=== PATIENT | female | born 1960 | race Caucasian/White ===

== ENCOUNTER → 2019-08-30 | Outpatient (CLI) | payer OTHER, SELFPAY ==
--- NOTE | 2019-08-30 15:59 | US_ITS ---
STUDY: THYROID ULTRASOUND REASON FOR EXAM: Female, 59 years old. Nodule. Stricture of left thyroidectomy. TECHNIQUE: Ultrasound evaluation of the thyroid was performed with real-time and static salazar-scale imaging. COMPARISON: CTA of the carotid arteries, May 06, 2016. FINDINGS: RIGHT LOBE: The right lobe of the thyroid gland measures 4.7 x 2.7 x 2.8 cm. There is a homogeneous echotexture. There is a 2.8 x 2.7 x 2.4 cm complex solid and cystic nodule which correlates with the CT finding. There is peripheral and internal blood flow. LEFT LOBE: Status post left thyroidectomy ISTHMUS: The isthmus measures 0.3 cm. The regional lymph nodes are normal. US/Thyroid IMPRESSION: TIRADS TR 2 lesion. Not suspicious. This appears unchanged in size and appearance from the CT of 2016. Electronically Signed: Breezy Loredo DO at 22:50 EDT Tel [phone], Service support ,
== END | disposition home or self-care (01) ==
LOC: US 15:57
PROVIDERS: Referring Provider Surgery; Visit Provider Surgery
DX: E04.1 Nontoxic single thyroid nodule (principal)
CPT/HCPCS: 76536

== ENCOUNTER → 2020-12-28 15:52 | Outpatient (CLI) | payer OTHER, SELFPAY ==
[2019-09-23 13:51] VITALS: BMI 34.0
[2020-12-28 17:24] LABS: Absolute Lymphocyte Count 3.21 X10^3/uL (0.83-4.51); Absolute Neutrophil Count 2.7 X10^3/uL (2.0-7.7); Basophil# 0.03 X10^3/uL; Basophil% 0.5 % (0-1); Eosinophil# 0.07 X10^3/uL; Eosinophils% 1.1 % (0-5); Hematocrit 41.9 % (37-47); Hemoglobin 13.6 g/dL (12.0-15.0); Lymphocyte # 3.21 X10^3/ul (4.0); Lymphocyte % 48.5 % (19-41); Mean Corp Hgb Conc 32.5 g/dL (32-36); Mean Corpuscular Hgb 28.7 pg (27.0-32.0); Mean Corpuscular Volume 88.4 fL (81-99); Mean Platelet Vol. 10.7 fl (6.2-12.0); Monocyte# 0.56 X10^3/uL; Monocyte% 8.5 % (0-10); NRBC Flagged by Analyzer 0 % (0-5); Neutrophil # 2.73 X10^3/uL (2.7-7.7); Neutrophil % 41.1 % (47-70); Platelet Count 194 K/mm3 (150-450); RBC Distribution Width CV 13.2 % (11.6-14.6); RBC Distribution Width SD 43.5 fl (35.1-43.9); Red Blood Count 4.74 M/mm3 (4.2-5.4); White Blood Count 6.6 K/mm3 (4.4-11.0)
[2020-12-28 17:52] LABS: ALB/GLOB Ratio 1.2 RATIO (0.9-2.4); AST(SGOT) 14 U/L (15-37); Alanine Aminotransfer ALT/SGPT 27 U/L (13-56); Albumin, Serum 3.8 g/dL (3.2-5.0); Alkaline Phosphatase 117 U/L (45-117); Anion Gap 5 (5-15); BUN 14 mg/dL (7-18); BUN/Creat Ratio 14.8 RATIO (10-20); Calcium,Total 8.4 mg/dL (8.5-10.1); Chloride 108 mmol/L (98-107); Cholesterol 212 mg/dL (200); Creatinine, Serum 0.94 mg/dL (0.55-1.02); EST Glomerular Filtration Rate 64 mL/min (>60); Est Glom Filt Rate - Afr Amer 78 mL/min (>60); Globulin 3.1 g/dL (2.2-4.2); Glucose 76 mg/dL (74-106); High Density Lipoprotein 90 mg/dL; Potassium 3.5 mmol/L (3.5-5.1); Protein, Total 6.9 g/dL (6.4-8.2); Sodium Level 142 mmol/L (136-145); T4 Free Direct 1.04 ng/dL (0.76-1.46); Thyroid Stim Hormone (TSH) 2.25 uIU/mL (0.358-3.74); Triglycerides 110 mg/dL; Very Low Density Lipoprotein 22 mg/dL (5-40)
[2020-12-31 20:31] LABS: Anti-Thyroglobulin AB < 1.0 IU/mL (0.0-0.9); Thyroglobulin, Serum Qt. 106.8 ng/mL (1.5-38.5); Thyroid Peroxidase AB < 9 IU/mL (0-34)
== END ==
PROVIDERS: PCP Family Medicine; Referring Provider Family Medicine; Visit Provider Family Medicine
DX: E03.9 Hypothyroidism, unspecified (principal)
CPT/HCPCS: 36415; 80053; 80061; 84432; 84439; 84443; 85025; 86376; 86800

== ENCOUNTER → 2021-01-17 15:00 | Outpatient (CLI) | payer OTHER, SELFPAY ==
[2019-09-23 13:51] VITALS: BMI 34.0
--- NOTE | 2021-01-17 15:03 | ECHOD_ITS ---
Reason For Study: MURMUR Procedure This was a 2D Doppler, Color Flow transthoracic echocardiogram. Exam performed in department. Left Ventricle Normal LV size. The estimated ejection fraction is 60-65 %. No evidence for diastolic dysfunction. No regional wall motion abnormalities noted. Right Ventricle Normal RV size. Normal systolic function. Atria Normal left atrium. Normal right atrium. No doppler evidence for ASD. Mitral Valve There is no mitral valve stenosis. Trivial mitral valve insufficiency. Tricuspid Valve There is no tricuspid stenosis. Trivial tricuspid valve insufficiency. Unable to estimate RV systolic pressure due to insufficient tricuspid regurgitant envelope. Aortic Valve Trisinus/trileaflet aortic valve. Aortic sclerosis, no stenosis. There is no aortic stenosis. No aortic valve insufficiency. Pulmonic Valve There is no pulmonic valvular stenosis. No pulmonic valve insufficiency. Great Vessels Normal aortic root. Pericardium/Pleural No pericardial effusion. MMode/2D Measurements & Calculations LVIDd: 3.9 cm IVSd: 0.74 cm Ao root diam: 3.5 cm LVIDs: 2.7 cm LVPWd: 0.76 cm RVDd: 3.2 cm FS: 29.2 % LAV(MOD-bp): 37.4 ml LA A4 area: 11.9 cm2 LA dimension(2D): 3.5 cm LAV(MOD-bp) Indexed: 20.7 ml/m2 LAV(MOD-sp2): 56.6 ml LAV(MOD-sp4): 23.9 ml RA A4 area: 10.5 cm2 Time Measurements MV dec time: 0.21 sec Doppler Measurements & Calculations MV E max adolfo: 76.7 cm/sec Lat Peak E' Adolfo: 10.5 cm/sec Med Peak E' Adolfo: 7.0 cm/sec MV A max adolfo: 87.7 cm/sec E/E' lat: 7.3 E/E' med: 11.0 MV E/A: 0.87 Ao V2 max: 156.4 cm/sec LV V1 max: 118.4 cm/sec PA V2 max: 123.1 cm/sec Ao max P.8 mmHg LV V1 max P.6 mmHg TR max adolfo: 231.9 cm/sec TR max P.5 mmHg Interpretation Summary The estimated ejection fraction is 60-65 %. No evidence for diastolic dysfunction. Trivial mitral valve insufficiency. Ordering Physician: Ike Moraes Referring Physician: Ike Moraes Performed By: Lyric Michaels RDCS, RVT
== END ==
PROVIDERS: PCP Family Medicine; Referring Provider Family Medicine; Visit Provider Family Medicine
DX: R01.1 Cardiac murmur, unspecified (principal)
CPT/HCPCS: 93306

== ENCOUNTER → 2021-04-23 16:27 | Outpatient (CLI) | payer OTHER, SELFPAY ==
[2019-09-23 13:51] VITALS: BMI 34.0
[2021-04-23 18:31] LABS: T4 Free Direct 1.22 ng/dL (0.76-1.46); Thyroid Stim Hormone (TSH) 2.88 uIU/mL (0.358-3.74)
== END ==
PROVIDERS: PCP Family Medicine; Referring Provider Family Medicine; Visit Provider Family Medicine
DX: E03.9 Hypothyroidism, unspecified (principal)
CPT/HCPCS: 36415; 84439; 84443

== ENCOUNTER → 2022-03-25 | Outpatient (CLI) | payer OTHER, SELFPAY ==
[2022-03-25 17:37] LABS: Absolute Neutrophil Count 1.7 X10^3/uL (2.0-7.7); Basophil# 0.02 X10^3/uL; Basophil% 0.4 % (0-1); Eosinophil# 0.04 X10^3/uL; Eosinophils% 0.8 % (0-5); Hematocrit 40.2 % (37-47); Hemoglobin 13.2 g/dL (12.0-15.0); Mean Corp Hgb Conc 32.8 g/dL (32-36); Mean Corpuscular Hgb 28.9 pg (27.0-32.0); Mean Corpuscular Volume 88.2 fL (81-99); Mean Platelet Vol. 11.2 fl (6.2-12.0); Monocyte% 9.5 % (0-10); NRBC Flagged by Analyzer 0 % (0-5); Neutrophil # 1.69 X10^3/uL (2.7-7.7); Neutrophil % 32.1 % (47-70); Platelet Count 180 K/mm3 (150-450); RBC Distribution Width CV 13.6 % (11.6-14.6); Red Blood Count 4.56 M/mm3 (4.2-5.4); White Blood Count 5.3 K/mm3 (4.4-11.0)
[2022-03-25 18:46] LABS: ALB/GLOB Ratio 1.2 RATIO (0.9-2.4); AST(SGOT) 15 U/L (15-37); Alanine Aminotransfer ALT/SGPT 28 U/L (13-56); Albumin, Serum 3.6 g/dL (3.2-5.0); Alkaline Phosphatase 99 U/L (45-117); Anion Gap 6 (5-15); BUN 13 mg/dL (7-18); BUN/Creat Ratio 14.4 RATIO (10-20); Calcium,Total 8.5 mg/dL (8.5-10.1); Chloride 107 mmol/L (98-107); EST Glomerular Filtration Rate 67 mL/min (>60); Est Glom Filt Rate - Afr Amer 81 mL/min (>60); Globulin 2.9 g/dL (2.2-4.2); Glucose 83 mg/dL (74-106); Potassium 4.1 mmol/L (3.5-5.1); Protein, Total 6.5 g/dL (6.4-8.2); Sodium Level 141 mmol/L (136-145); T4 Free Direct 1.38 ng/dL (0.76-1.46); Thyroid Stim Hormone (TSH) 1.94 uIU/mL (0.358-3.74)
[2022-03-25 19:14] LABS: Vitamin B12 318 pg/mL (211-911); Vitamin D,25 Hydroxy 21.3 ng/mL
== END | disposition home or self-care (01) ==
LOC: MFPLAB 15:33
PROVIDERS: PCP Family Medicine; Visit Provider Family Medicine
DX: E03.9 Hypothyroidism, unspecified (principal); R23.2 Flushing
CPT/HCPCS: 36415; 80053; 82306; 82607; 84439; 84443; 85025

== ENCOUNTER → 2022-04-11 | Outpatient (CLI) | payer OTHER, SELFPAY ==
--- NOTE | 2022-04-11 15:58 | US_ITS ---
ACR Level 3 findings have been noted. An addendum which confirms receipt of the report will follow. INDICATION: THYROID NODULE- F/U RT EXAMINATION: Ultrasound US Thyroid (eg thyroid, parathyroid, parotid) TECHNIQUE: Lujan scale and color doppler imaging was performed of the thyroid gland. COMPARISON: None. FINDINGS: RIGHT THYROID LOBE: 5.1 x 3.4 x 3.1 cm. Homogeneous echotexture with normal vascularity. [Single nodule in the midpole with smooth margins, nearly completely solid with small cystic areas, no internal echogenic foci, wider than tall, isoechoic to mildly hyperechoic. Nodule measures 3.5 x 3.5 x 2.3 cm. LEFT THYROID LOBE: Surgically absent.. [ ISTHMUS: 3 mm. No thyroid nodules are present. US/Thyroid IMPRESSION: Status post left lobectomy. 3.5 cm nodule TI-RADS level 3 or mildly suspicious. Fine-needle aspiration recommended. Electronically Signed: Parish Medrano MD at 19:57 EDT ,
== END | disposition home or self-care (01) ==
LOC: US 15:55
PROVIDERS: PCP Family Medicine; Referring Provider Family Medicine; Visit Provider Family Medicine
DX: E04.1 Nontoxic single thyroid nodule (principal)
CPT/HCPCS: 76536

== ENCOUNTER → 2022-05-15 | Outpatient (CLI) | payer OTHER, SELFPAY ==
--- NOTE | 2022-05-15 10:00 | ASPS_PTH ---
PATIENT: MUNIR MORENO LOC: [facility] U#:[id number] AGE/SX: 62/F ROOM: RE05/15/[address]: Dr. Yovanny Siddiqui MD : 1960 BED: DIS: 05/15/2022 SPEC #: [id number] RECD: 05/15/22 12:08 STATUS: DAVE SCHAFFER #: [id number] MIHIR: 05/15/22 10:[address]: Yovanny Siddiqui DEPT: CYTOLOGY RECD BY: Jael Lora ENTERED: 05/15/22 13:53 SP TYPE: ASPIRATION OTHR DR: Dr. Ike Moraes MD Tissues: Thyroid gland, NOS Procedures: Special Stain Group II Cytology Other HEADER OPERATION: Right thyroid fine needle aspiration PRE-OP DIAGNOSIS: Right thyroid nodule TISSUE SUBMITTED: Right thyroid nodule x8 slides DIAGNOSIS CYTOLOGY Fine needle aspiration, right thyroid nodule (smears): Adequate for evaluation. Focal atypia of undetermined significance (Harrison III). See comment. 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 Clinical correlation is suggested. Multi-gene next-generation sequencing panel (Afirma) is recommended for this lesion. CYTOLOGY STUDY Slides are reviewed. CYTOLOGY GROSS Received are eight smears labeled with the patient's name and designated per the requisition as right thyroid nodule. Submitted for staining. / iván 05/15/2022 TC:? CPT: 02390
== END | disposition home or self-care (01) ==
LOC: LABSPEC 13:31
PROVIDERS: PCP Family Medicine; Visit Provider Surgery
DX: E04.1 Nontoxic single thyroid nodule (principal)
CPT/HCPCS: 88161; 88313

== ENCOUNTER → 2022-11-12 | Outpatient (CLI) | payer OTHER, SELFPAY ==
[2022-11-17 12:26] LABS: HPV APTIMA, High Risk Negative (Negative)
[2022-11-17 20:30] LABS: HPV Reflexed? YES, CHARGE PATIENT
== END | disposition home or self-care (01) ==
PROVIDERS: PCP Family Medicine; Visit Provider Nurse Practitioner Family
DX: Z01.419 Encounter for gynecological examination (general) (routine) without abnormal findings (principal)
CPT/HCPCS: 87624; 88175; G0145

== ENCOUNTER → 2023-03-05 | Outpatient (CLI) | payer OTHER, SELFPAY ==
[2023-03-05 13:00] LABS: Free T3 2.5 pg/mL (2.18-3.98); T4 Free Direct 1.23 ng/dL (0.76-1.46); Thyroid Stim Hormone (TSH) 1.81 uIU/mL (0.358-3.74)
[2023-03-05 13:04] LABS: Vitamin B12 294 pg/mL (211-911)
[2023-03-12 00:06] LABS: Vitamin B1, Thiamine 170.1 nmol/L (66.5-200.0)
== END | disposition home or self-care (01) ==
LOC: MFPLAB 10:44
PROVIDERS: PCP Family Medicine; Visit Provider Psychiatry & Neurology Neurology
DX: E55.9 Vitamin D deficiency, unspecified (principal); G24.9 Dystonia, unspecified
CPT/HCPCS: 36415; 82607; 82652; 82746; 84425; 84439; 84443; 84481

== ENCOUNTER → 2023-05-01 | Outpatient (CLI) | payer OTHER, SELFPAY ==
--- NOTE | 2023-05-01 15:42 | US_ITS ---
INDICATION: thyroid, F/U EXAMINATION: Ultrasound US Thyroid (eg thyroid, parathyroid, parotid) TECHNIQUE: Lujan scale and color doppler imaging was performed of the thyroid gland. COMPARISON: 04/11/2022 FINDINGS: RIGHT THYROID LOBE: 5.1 x 3.5 x 2.9 cm. Homogeneous echotexture with normal vascularity. [There is a large complex nodule/mass within the RIGHT thyroid, measuring 3.7 x 3.8 x 2.4 cm. This is predominantly solid with several small cysts. Mildly lobulated contour. There is peripheral and internal blood flow. Based on the current imaging findings, this is consistent with a TI-RADS 4 lesion. Imaging findings appear stable. LEFT THYROID LOBE: Surgically absent. ISTHMUS: 2 mm. No thyroid nodules are present. US/Thyroid IMPRESSION: 1. Status post LEFT thyroidectomy. 2. Large dominant RIGHT thyroid mass predominantly solid however small cystic areas, irregular lobulated contour, and internal and peripheral blood flow. Findings are stable, however consistent with a TI-RADS 4 lesion. As noted on previous report, FNA is recommended. If FNA has been previously performed at, and recommend follow-up in one year to assure stability. Reference: Tessler. Deutsch al., ACR Thyroid Imaging, Reporting and Data System (TI-RADS): White Paper of the ACR TI-RADS Committee. 2017. ACR. http://dx.doi.org/10.1016/j.jacr.2017.01.046 TI RADS 1: Benign: No FNA TI-RADS 2: Not suspicious: No FNA TI-RADS 3: Mildly suspicious: FNA ? 2.5 cm, follow ? 1.5 cm TI-RADS 4: Moderately suspicious: FNA if ? 1.5 cm, follow if ? 1 cm TI-RADS 5: Highly suspicious: FNA if ? 1 cm, follow if ? 0.5 cm Electronically Signed: Armin Marinelli MD at 0:43 EDT ,
== END | disposition home or self-care (01) ==
PROVIDERS: PCP Family Medicine; Referring Provider Family Medicine; Visit Provider Family Medicine
DX: E04.1 Nontoxic single thyroid nodule (principal)
CPT/HCPCS: 76536

== ENCOUNTER 2023-10-20 05:51 | Day surgery (SDC) | payer OTHER, SELFPAY ==
[2023-10-12 14:59] LABS: Hematocrit 40.7 % (37-47); Mean Corp Hgb Conc 31.9 g/dL (32-36); Mean Corpuscular Hgb 28.7 pg (27.0-32.0); Mean Corpuscular Volume 89.8 fL (81-99); Mean Platelet Vol. 10.5 fl (6.2-12.0); Platelet Count 176 K/mm3 (150-450); RBC Distribution Width CV 13.2 % (11.6-14.6); Red Blood Count 4.53 M/mm3 (4.2-5.4); White Blood Count 5.2 K/mm3 (4.4-11.0)
[2023-10-12 15:27] LABS: Anion Gap 3 (5-15); BUN 14 mg/dL (7-18); Calcium,Total 8.5 mg/dL (8.5-10.1); Chloride 107 mmol/L (98-107); Creatinine, Serum 0.74 mg/dL (0.55-1.02); EST Glomerular Filtration Rate 85 mL/min (>60); Est Glom Filt Rate - Afr Amer 102 mL/min (>60); Glucose 90 mg/dL (74-106); Potassium 3.8 mmol/L (3.5-5.1); Sodium Level 140 mmol/L (136-145); Thyroid Stim Hormone (TSH) 1.02 uIU/mL (0.358-3.74)
[2023-10-20] VITALS (9 sets, daily range): BP systolic 109–159; BP diastolic 66–94; PULSE 71–85; RESP 16–18; TEMP 36.2–37.2; O2SAT 83–100; BMI 28.5
--- NOTE | 2023-10-20 05:59 | HP.PCM_ITS ---
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 Disorder of thyroid GERD (gastroesophageal reflux disease) History of breast cancer history thyroid lobectomy Hypothyroidism associated with surgical procedure Non Hodgkin's lymphoma Obesity (BMI 30.0-34.9) Surgical History History of appendectomy History of bilateral oophorectomy History of lumpectomy of left breast S/P thyroid biopsy S/P thyroid biopsy (~05/2022) Family History Grandmother Colon cancerMother High cholesterolSister Thyroid disorderFather Lewy body dementia Social History Smoking Status: Never smoker second hand exposure: No details: occasionally substance use type: does not use what type of physical activity do you participate in: none jared/restoration: Mandaeism seatbelt use: always HPI HPI Surgical H&P: Yes HPI: Patient is a 63 y/o F I am seeing for an update history and physical for an elective completion of the right thyroid lobectomy. Patient denies any recent hospitalizations or illnesses since her last office visit. She denies any medication changes. She notes nausea, vomiting with anesthesia previously. Patient denies any previous cardiac or pulmonary history. Previous history per Dr. Siddiqui: 63-year-old female. I have most recently seen her on May 25, 2023 and discussion of thyroid surgery, specifically a completion right thyroid lobectomy. The patient states that she has been seen by Dr. Bebeto Middleton and that completion right thyroid lobectomy was concurred. The patient wondered about recovery time and medication use post procedure. Her clinical status otherwise remained stable. The patient does make comment regarding some quivering of her tongue. She was evaluated by Dr. Amezcua and was told there were no acute problems. The patient thinks it may be bruise result of some acute anxiety. It is only intermittent. That is the only symptom. My previous notes reflect the followin-year-old female. I have most recently seen her on June 05 2022.On May 08, 2023 I was asked to review her recent ultrasound of May 01, 2023. My communication note reflects the following. She has a known 3.7 x 3.8 x 2.4 cm right thyroid nodule which is solid and cystic. TI-RADS 4. Previously on April 11, 2022 at the [facility] the patient of thyroid ultrasound. There was felt to be a 3.5 x 3.5 x 2.3 cm solid cystic right thyroid nodule. On May I performed an ultrasound-guided fine aspiration of the right thyroid nodule. Cytology and that it was felt to be adequate. There is focal atypia of undetermined significance [place] 3. Significant portion of the follicular cells displayed Hurthle cell features. Afirma testing was recommended. So a repeat ultrasound- guided fine-needle aspiration of the right thyroid nodule was performed with specimen sent for Afirma. That result suggested risk of malignancy 4%. It is of note that dating all the way back to May 14, 2005 because of an abnormal left thyroid fine-needle aspiration suggesting papillary carcinoma we will proceed with a left thyroid lobectomy and final pathology was consistent with goiter. Separately the patient has a history of non-Hodgkin's lymphoma and chronic lymphocytic leukemia. Dating back to September 15, 2017 at the [facility] her right thyroid nodule measured 2.6 x 2 x 2.5 cm Based upon the results of the Afirma we did not pursue excision of the right thyroid lobe. I believe that it is pertinent that the patient schedule an office appointment for additional discussion As of March 05, 2023 her TSH was 1.83 with a free T41.23 And free T3 of 2.5 all normal. She is maintained on levothyroxine 50 mcg orally daily. ROS General General: Yes breast cancer; No weight change, appetite, fatigue, colon cancer or weakness HEENT HEENT: No difficulty swallowing, eye injury, eye surgery, swollen glands or hoarseness Endo Endocrine: Yes thyroid disease; No diabetes mellitus, thyroid cancer, Hair loss, heat intolerance or cold intolerance Skin Skin: No rash or changing moles Musc Musculoskeletal: No back problems, arthritis, rheumatoid arthritis, gout or joint pain Cardio Cardiovascular: No murmur, pacemaker, heart disease, atrial fibrillation, high blood pressure, heart attack, heart stent, palpitations, shortness of breat with exertion or chest pain Psych Psychiatric: Yes depression and anxiety; No hearing voices Resp Respiratory: No shortness of breath, No sleep apnea, No cough, No COPD, No asthma, No emphysema and No wheezing Gastro Gastrointestinal: No abdominal pain, No nausea or vomiting, No diarrhea, No constipation, No blood in stool, No acid reflux, No hemorrhoids, No ulcers, No gallbladder problem and No black,tarry stools Amilcar Hematologic: No blood thinners, No blood disorders, No bleeding, No anemia and No blood clots Neuro Neurologic: No system reviewed and no additional complaints, except as documented, No as per HPI, No abnormal gait, No abnormal hearing, No abnormal movements, No abnormal speech, No behavioral changes, No burning sensations, No confusion, No convulsions, No disequilibrium, No dizziness, No localized weakness, No frequent falls, No headache(s), No lack of coordination, No loss of vision, No memory loss, No numbness, No other visual disturbances, No radicular pain, No restless legs, No sensory deficit, No syncope, No tingling, No tremor(s), No weakness and No other Exam Const General: cooperative, healthy appearing, comfortable and no acute distress [facility] Head: normal to inspection Eyes General: appearance normal, both eyes and all related structures Neck Neck: normal visual inspection Neck mass: No Resp Effort & Inspection: normal respiratory effort Auscultation: clear to auscultation bilaterally Cardio Rate: regular rate Rhythm: regular rhythm GI Inspection: normal to inspection Palpation: soft Auscultation: normal bowel sounds Musc Cervical Spine: normal cervical lordosis Skin General: no rashes or lesions noted Neuro General: no focal motor deficits and CN's II-XI intact bilaterally Extrem General: normal to inspection Psych Appearance: grossly normal Affect: normal affect Assessment and Plan Assessment and Plan (1) Right thyroid nodule: Status: Acute Plan: Dr. Siddiqui will plan to perform a completion of the right thyroid lobectomy. Procedure details, risks and benefits have been explained and reviewed. Patient has had the opportunity to ask and have questions answered. Patient notes she discussed with Dr. Childs's office about holding her Imbruvica for the procedure 5 days prior as this medication acts like a blood thinner. Patient verbally understands and agrees with the plan I have examined the patient and the H&P has been reviewed. There are no clinical changes since date of exam. Yovanny Siddiqui M.D., F.A.C.S.
--- NOTE | 2023-10-20 06:09 | DCINST_ITS ---
Discharge Instructions Diet Discharge Diet: Light diet - advance as tolerated Activity Discharge Activity: May Not Drive (Driving for 3 to 5 days.) and May Shower (May shower tomorrow. Pat the incision dry. Remove your dressing prior to the shower.) Lifting Restrictions: 10 pound weight lifting restriction. Dressing / Incision Additional Dressing/Incision Instructions:: You may remove your dressing tomorrow. Reapply a light dressing if there is any clothing irritation to the incision. Follow Up Care Please Follow Up With: Yovanny Siddiqui MD When: Please contact the office at [phone] to schedule an appointment for approximately 10 days. Test Results: Test results from this visit will be discussed in further detail at your follow- up appointment, if applicable. Discharge Plan Admission Attending Provider: Yovanny Siddiqui Primary Care Provider: Ike Moraes Discharge Orders/Prescriptions Prescriptions: No Action Imbruvica 140 mg capsule 420 mg PO QDAY Patient Comments: 3 pills per day cholecalciferol (vitamin D3) 25 mcg (1,000 unit) capsule 25 mcg PO DAILY levothyroxine 50 MCG tablet 50 mcg PO DAILY Patient Comments: thyroid biotin 1 mg capsule 1 mg PO DAILY Referrals / Follow Up: Ike Moraes MD [Primary Care Provider] - Disposition Disposition (needs filled in before D/C Order can be placed): Home, Self Care
[2023-10-20] MEDS: Lactated Ringers 1,000 ML 15 ML IV (06:28)
--- NOTE | 2023-10-20 07:30 | THYROID_PTH ---
PATIENT: MUNIR MORENO [place] [facility] [place][id number] AGE/SX: 63/F ROOM: RE10/20/[address]: Dr. Yovanny Siddiqui MD : 1960 BED: DIS: 10/20/2023 SPEC #: [id number] RECD: 10/20/23 09:46 STATUS: DAVE SCHAFFER #: [id number] MIHIR: 10/20/23 07:[address]: Yovanny Siddiqui DEPT: SURGICAL PATHOLOGY RECD BY: Jael Lora ENTERED: 10/20/23 10:07 SP TYPE: THYROID OTHR DR: Dr. Ike Moraes MD Tissues: Thyroid gland, NOS Procedures: Surgery Specimen Level V HEADER OPERATION: Right thyroidectomy lobectomy completion PRE-OP DIAGNOSIS: Right thyroid nodule, progressive enlargement TISSUE SUBMITTED: Right thyroid lobe, silk suture buckley isthmus MICROSCOPIC DIAGNOSIS Right thyroid lobe, lobectomy: Uninodular goiter with Hurthle cell features. TAMMI:iván 10/22/2023 COMMENT Please make reference to previous specimen ([id number]) fine needle aspiration, right thyroid nodule with diagnosis of focal atypia of undetermined significance. MICROSCOPIC DESCRIPTION Slides are reviewed. GROSS DESCRIPTION Received in fixative is one container labeled with the patient's name and designated right thyroid lobe. The specimen consists of a thyroid lobectomy specimen weighing 25 gm and measures 5.0 x 5.5 x 3.0 cm. The specimen is oriented by the suture at the resection margin. The specimen is inked as follows: anterior surface - blue, posterior surface - black, isthmic margin - yellow. Sections reveal a vidal-pink colloidy nodule with central area of hemorrhage occupying about 90% of the lobe measuring 4.5 x 4.5 x 3.0 cm. Reactor Service Operator sections are submitted in ten cassettes (cassette 1 contains the ischemic resection margin. Cassette 2 consists of most superior portion of the thyroid lobe and cassette 10 contains the most inferior portion of the thyroid lobe). / TAMMI:iván 10/21/2023 TC:5 CPT: 12356
[2023-10-20] MEDS: Bupivacaine Mpf 0.5% 30 ML VIAL (09:05)
--- NOTE | 2023-10-20 09:08 | PCM.OPRPT ---
Report of Operation Date of Procedure: 10/20/23 Pre-Operative Diagnosis: Enlarging right thyroid nodule Post-Operative Diagnosis: Same Surgery/Procedure Performed:: Right thyroid lobectomy with partial isthmusectomy Description of Surgical Findings:: Timeout and informed consent was obtained. 63-year-old female was taken to the op room placed upon the table underwent general endotracheal intubation and anesthesia neck was gently extended placed on the gel head head of bed was slightly elevated at 20 degrees neck was sterilely prepped and draped the patient has had a previous very remote left thyroid lobectomy with partial isthmus ectomy the previous incision was transversely elliptically reexcised and sharp dissection carried down through the substance tissue platysmal flaps were raised to strap muscles were incised vertically portion of the right straps were stripped transected in order to get better visualization quite a sizable right lobe of the thyroid was encountered tediously and carefully dissected free the superior pole vessels secured them with a harmonic and were needed with a single Hemoclip. Then I addressed the inferior pole and then took the middle parietal vein as well this allowed me to then correct gently and slowly rotate the gland anteriorly the course of the recurrent laryngeal nerve was identified the inferior parathyroid was felt to have been identified the gland was rotated anteriorly dissection performed directly on the posterior aspect of the gland. The checkpoint device was used to check the function of the nerve and it was functioning well there was no evidence of any interruption. Finally I was able to get the gland rotated up enough for using a [place] scalpel and where needed Bovie cautery I resected the gland off the anterior surface of the trachea taking a small portion of the remnant isthmus with it. Inspection revealed that hemostasis was intact the nerve was again tested and was intact. Fibular was placed in the right neck inspection revealed hemostasis completely intact strap muscles were repaired on the right with a [id number] suture of 3-0 Vicryl strap muscles were repaired midline with simple sutures of 3-0 Vicryl subdermal tissues approximated interrupted 3-0 Vicryl skin edges approximated with interrupted subdermal stitches of 5-0 Vicryl apparent incisional areas anesthetized with 10 cc of 0.5% Marcaine surgical glue Telfa and tape dressings applied Sponge and instrument and needle counts were reported the surgeon to be correct Specimens right lobe of thyroid with partial isthmus with a suture placed at the isthmus. Blood loss minimal. Drains none. The patient was taken to the recovery room in satisfied condition without apparent complication Yovanny Siddiqui M.D., F.A.C.S. Surgeon: Yovanny Siddiqui Type of Anesthesia: General and Local Anesthesiologist: Jae Manjarrez
[2023-10-20] MEDS: Acetaminophen 325 MG Tablet 650 MG PO (10:35)
== END 2023-10-20 12:39 | disposition home or self-care (01) ==
LOC: SDC 05:51 → AC 05:51
PROVIDERS: PCP Family Medicine; Referring Provider Surgery; Visit Provider Surgery
PROC: (CPT 60210; principal; 2023-10-20 07:15)
DX: E04.1 Nontoxic single thyroid nodule (principal); E03.9 Hypothyroidism, unspecified; E66.9 Obesity, unspecified; Z79.899 Other long term (current) drug therapy
CPT/HCPCS: 60210; 00320; 36415; 80048; 84443; 85027; 88307; 93005; A4648; J7120; J2405

== ENCOUNTER → 2023-10-27 | Outpatient (CLI) | payer OTHER, SELFPAY ==
[2023-10-27 14:44] LABS: Calcium,Total 9.3 mg/dL (8.5-10.1)
== END | disposition home or self-care (01) ==
LOC: PAVLAB 14:20
PROVIDERS: PCP Family Medicine; Referring Provider Physician Assistant; Visit Provider Physician Assistant
DX: Z90.09 Acquired absence of other part of head and neck (principal)
CPT/HCPCS: 36415; 82310

== ENCOUNTER → 2023-12-01 | Outpatient (CLI) | payer OTHER, SELFPAY ==
[2023-12-01 17:12] LABS: Thyroid Stim Hormone (TSH) 3.27 uIU/mL (0.358-3.74)
== END | disposition home or self-care (01) ==
PROVIDERS: PCP Family Medicine; Referring Provider Physician Assistant; Visit Provider Physician Assistant
DX: Z90.09 Acquired absence of other part of head and neck (principal)
CPT/HCPCS: 36415; 84443

== ENCOUNTER → 2023-12-15 | Outpatient (CLI) | payer OTHER, SELFPAY ==
[2023-12-15 17:37] LABS: Absolute Lymphocyte Count 2.02 X10^3/uL (0.83-4.51); Absolute Neutrophil Count 2.2 X10^3/uL (2.0-7.7); Basophil# 0.01 X10^3/uL; Basophil% 0.2 % (0-1); Eosinophil# 0.01 X10^3/uL; Eosinophils% 0.2 % (0-5); Hematocrit 42.3 % (37-47); Hemoglobin 13.5 g/dL (12.0-15.0); Lymphocyte # 2.02 X10^3/ul (0.83-4.51); Lymphocyte % 44.2 % (19-41); Mean Corp Hgb Conc 31.9 g/dL (32-36); Mean Corpuscular Hgb 28.4 pg (27.0-32.0); Mean Corpuscular Volume 89.1 fL (81-99); Mean Platelet Vol. 11.2 fl (6.2-12.0); Monocyte# 0.32 X10^3/uL; NRBC Flagged by Analyzer 0 % (0-5); Neutrophil % 48.2 % (47-70); Platelet Count 150 K/mm3 (150-450); RBC Distribution Width CV 13.3 % (11.6-14.6); RBC Distribution Width SD 43.7 fl (35.1-43.9); Red Blood Count 4.75 M/mm3 (4.2-5.4); White Blood Count 4.6 K/mm3 (4.4-11.0)
[2023-12-15 17:54] LABS: Vitamin D,25 Hydroxy 42.8 ng/mL
[2023-12-15 18:05] LABS: ALB/GLOB Ratio 1.1 RATIO (0.9-2.4); AST(SGOT) 15 U/L (15-37); Alanine Aminotransfer ALT/SGPT 32 U/L (13-56); Albumin, Serum 3.5 g/dL (3.2-5.0); Alkaline Phosphatase 126 U/L (45-117); Anion Gap 2 (5-15); BUN 20 mg/dL (7-18); BUN/Creat Ratio 20.4 RATIO (10-20); Calcium,Total 8.7 mg/dL (8.5-10.1); Chloride 106 mmol/L (98-107); Cholesterol 186 mg/dL (200); Creatinine, Serum 0.98 mg/dL (0.55-1.02); EST Glomerular Filtration Rate 61 mL/min (>60); Est Glom Filt Rate - Afr Amer 74 mL/min (>60); Globulin 3.1 g/dL (2.2-4.2); Glucose 88 mg/dL (74-106); High Density Lipoprotein 73 mg/dL; Potassium 3.8 mmol/L (3.5-5.1); Protein, Total 6.6 g/dL (6.4-8.2); Sodium Level 136 mmol/L (136-145); T4 Free Direct 1.41 ng/dL (0.76-1.46); Thyroid Stim Hormone (TSH) 1.72 uIU/mL (0.358-3.74); Triglycerides 150 mg/dL; Very Low Density Lipoprotein 30 mg/dL (5-40)
== END | disposition home or self-care (01) ==
LOC: MFPLAB 15:53
PROVIDERS: PCP Family Medicine; Visit Provider Family Medicine
DX: E89.0 Postprocedural hypothyroidism (principal); E55.9 Vitamin D deficiency, unspecified
CPT/HCPCS: 36415; 80053; 80061; 82306; 84439; 84443; 85025

== ENCOUNTER → 2024-05-03 | Outpatient (CLI) | payer OTHER, SELFPAY ==
[2024-05-03 18:11] LABS: Absolute Lymphocyte Count 2.17 X10^3/uL (0.83-4.51); Absolute Neutrophil Count 2.7 X10^3/uL (2.0-7.7); Basophil# 0.03 X10^3/uL; Basophil% 0.6 % (0-1); Eosinophil# 0.02 X10^3/uL; Eosinophils% 0.4 % (0-5); Hematocrit 43.8 % (37-47); Hemoglobin 14.1 g/dL (12.0-15.0); Lymphocyte # 2.17 X10^3/ul (0.83-4.51); Lymphocyte % 41.3 % (19-41); Mean Corp Hgb Conc 32.2 g/dL (32-36); Mean Corpuscular Hgb 28.8 pg (27.0-32.0); Mean Corpuscular Volume 89.4 fL (81-99); Mean Platelet Vol. 10.6 fl (6.2-12.0); Monocyte# 0.34 X10^3/uL; Monocyte% 6.5 % (0-10); NRBC Flagged by Analyzer 0 % (0-5); Neutrophil # 2.69 X10^3/uL (2.7-7.7); Platelet Count 178 K/mm3 (150-450); RBC Distribution Width CV 12.7 % (11.6-14.6); RBC Distribution Width SD 41.7 fl (35.1-43.9); White Blood Count 5.3 K/mm3 (4.4-11.0)
[2024-05-03 18:36] LABS: ALB/GLOB Ratio 1.4 RATIO (0.9-2.4); AST(SGOT) 17 U/L (15-37); Alanine Aminotransfer ALT/SGPT 26 U/L (13-56); Alkaline Phosphatase 97 U/L (45-117); Anion Gap 6 (5-15); BUN 14 mg/dL (7-18); BUN/Creat Ratio 16.6 RATIO (10-20); Calcium,Total 9.3 mg/dL (8.5-10.1); Chloride 106 mmol/L (98-107); Creatinine, Serum 0.84 mg/dL (0.55-1.02); EST Glomerular Filtration Rate 72 mL/min (>60); Est Glom Filt Rate - Afr Amer 87 mL/min (>60); Globulin 2.8 g/dL (2.2-4.2); Glucose 98 mg/dL (74-106); Potassium 3.8 mmol/L (3.5-5.1); Protein, Total 6.8 g/dL (6.4-8.2); Sodium Level 140 mmol/L (136-145); T4 Free Direct 1.33 ng/dL (0.76-1.46); Thyroid Stim Hormone (TSH) 2.73 uIU/mL (0.358-3.74)
== END | disposition home or self-care (01) ==
LOC: MFPLAB 15:30
PROVIDERS: PCP Family Medicine; Visit Provider Family Medicine
DX: E89.0 Postprocedural hypothyroidism (principal); E55.9 Vitamin D deficiency, unspecified
CPT/HCPCS: 36415; 80053; 82306; 84439; 84443; 85025

== ENCOUNTER → 2024-10-13 | Outpatient (CLI) | payer OTHER, SELFPAY ==
[2024-10-13 18:15] LABS: T4 Free Direct 1.11 ng/dL (0.76-1.46)
[2024-10-14 09:04] LABS: Vitamin D,25 Hydroxy 39.2 ng/mL
== END | disposition home or self-care (01) ==
LOC: MFPLAB 15:10
PROVIDERS: PCP Family Medicine; Visit Provider Family Medicine
DX: E89.0 Postprocedural hypothyroidism (principal); E55.9 Vitamin D deficiency, unspecified
CPT/HCPCS: 36415; 82306; 84439; 84443

== ENCOUNTER → 2024-12-08 | Outpatient (CLI) | payer OTHER, SELFPAY ==
[2024-12-08 18:39] LABS: T4 Free Direct 1.15 ng/dL (0.76-1.46)
== END | disposition home or self-care (01) ==
LOC: MFPLAB 16:32
PROVIDERS: PCP Family Medicine; Visit Provider Family Medicine
DX: E89.0 Postprocedural hypothyroidism (principal)
CPT/HCPCS: 36415; 84439; 84443

== ENCOUNTER → 2025-03-02 | Outpatient (CLI) | payer OTHER, SELFPAY ==
[2025-03-02 17:56] LABS: Absolute Lymphocyte Count 2.28 X10^3/uL (0.83-4.51); Absolute Neutrophil Count 2.9 X10^3/uL (2.0-7.7); Basophil# 0.03 X10^3/uL; Basophil% 0.5 % (0-1); Eosinophil# 0.06 X10^3/uL; Hematocrit 40.6 % (37-47); Hemoglobin 13.3 g/dL (12.0-15.0); Lymphocyte # 2.28 X10^3/ul (0.83-4.51); Lymphocyte % 38.6 % (19-41); Mean Corp Hgb Conc 32.8 g/dL (32-36); Mean Corpuscular Hgb 29.1 pg (27.0-32.0); Mean Corpuscular Volume 88.8 fL (81-99); Mean Platelet Vol. 10.4 fl (6.2-12.0); Monocyte# 0.59 X10^3/uL; NRBC Flagged by Analyzer 0 % (0-5); Neutrophil # 2.94 X10^3/uL (2.7-7.7); Neutrophil % 49.7 % (47-70); Platelet Count 187 K/mm3 (150-450); RBC Distribution Width CV 13.4 % (11.6-14.6); RBC Distribution Width SD 43.8 fl (35.1-43.9); Red Blood Count 4.57 M/mm3 (4.2-5.4); White Blood Count 5.9 K/mm3 (4.4-11.0)
[2025-03-02 18:30] LABS: ALB/GLOB Ratio 1.9 RATIO (0.9-2.4); AST(SGOT) 25 U/L (<=31); Alanine Aminotransfer ALT/SGPT 35 U/L (<=34); Albumin, Serum 4.3 g/dL (3.4-4.8); Alkaline Phosphatase 111 U/L (35-104); Anion Gap 11 (5-15); BUN 19 mg/dL (4-19); BUN/Creat Ratio 20.2 RATIO (10-20); Calcium,Total 9.4 mg/dL (7.6-11.0); Carbon Dioxide 24.3 mmol/L (21.0-32.0); Chloride 105 mmol/L (98-108); Creatinine, Serum 0.95 mg/dL (0.70-1.20); EST Glomerular Filtration Rate 67 (>60); Globulin 2.3 g/dL (2.2-4.2); Glucose 85 mg/dL (70-99); Potassium 4.4 mmol/L (3.3-5.1); Protein, Total 6.5 g/dL (5.9-8.4); Sodium Level 140 mmol/L (133-145); Total Bilirubin 0.29 mg/dL (0.00-1.30)
== END | disposition home or self-care (01) ==
LOC: MFPLAB 16:36
PROVIDERS: PCP Family Medicine; Referring Provider Family Medicine; Visit Provider Family Medicine
DX: E89.0 Postprocedural hypothyroidism (principal)
CPT/HCPCS: 36415; 80053; 84439; 84443; 85025

== ENCOUNTER → 2025-07-04 | Outpatient (CLI) | payer MEDICARE, OTHER, SELFPAY ==
[2025-07-04 12:27] LABS: Hematocrit 39.0 % (37-47); Hemoglobin 12.8 g/dL (12.0-15.0); Immature Granulocytes Count 0.010 X10^3/uL (0.0-0.0); Mean Corp Hgb Conc 32.8 g/dL (32-36); Mean Corpuscular Volume 88.8 fL (81-99); Mean Platelet Vol. 10.7 fl (6.2-12.0); NRBC Flagged by Analyzer 0 % (0-5); Platelet Count 176 K/mm3 (150-450); RBC Distribution Width CV 13.5 % (11.6-14.6); RBC Distribution Width SD 43.9 fl (35.1-43.9); Red Blood Count 4.39 M/mm3 (4.2-5.4); White Blood Count 4.5 K/mm3 (4.4-11.0)
[2025-07-04 13:48] LABS: AST(SGOT) 21 U/L (<=31); Alanine Aminotransfer ALT/SGPT 24 U/L (<=34); Albumin, Serum 4.3 g/dL (3.4-4.8); Alkaline Phosphatase 98 U/L (35-104); Anion Gap 14 (5-15); BUN 16 mg/dL (4-19); BUN/Creat Ratio 17.6 RATIO (10-20); Calcium,Total 9.2 mg/dL (7.6-11.0); Carbon Dioxide 23.2 mmol/L (21.0-32.0); Chloride 103 mmol/L (98-108); Globulin 2.3 g/dL (2.2-4.2); Glucose 89 mg/dL (70-99); Potassium 4.5 mmol/L (3.3-5.1)
[2025-07-04 13:58] LABS: Vitamin B12 356 pg/mL (180-914)
[2025-07-04 14:16] LABS: Vitamin D,25 Hydroxy 126.0 ng/mL (30-100)
== END | disposition home or self-care (01) ==
PROVIDERS: PCP Family Medicine; Referring Provider Family Medicine; Visit Provider Family Medicine
DX: E89.0 Postprocedural hypothyroidism (principal); C91.10 Chronic lymphocytic leukemia of B-cell type not having achieved remission; E55.9 Vitamin D deficiency, unspecified
CPT/HCPCS: 36415; 80053; 82306; 82607; 84439; 84443; 85025